=== PATIENT | male | born 1980 | race Two or more races ===

== ENCOUNTER 2018-06-21 09:30 | Emergency (ER) | payer SELFPAY ==
[2018-06-21 09:37] VITALS: BMI 27.4
[2018-06-21 10:05] VITALS: RESP 18; TEMP 99.5
--- NOTE | 2018-06-21 10:09 | ED PDOC ---
Arrival/HPI - General Chief Complaint: ENT Problem Historian: Patient - History of Present Illness Narrative History of Present Illness (Text): 06/21/18 9:45 38 year old male who presents to the emergency department complaining bilateral ear pain and headache which started last night. Patient is primarily Citizen [place] speaking and reports that yesterday he had 3 beers and some Bacardi. He reports that at some point last night he started experiencing bilateral ear pain and a headache. He admits to a subjective fever stating that he feels "his skin burnin g". Patient denies any mechanical fall, and hasn't taken any medication for his headache. He also notes experiencing abdominal pain that started at approximately midnight today, has had an episode of vomiting, and episodes of diarrhea that produced black stool. Of note patient smokes cigarettes, but denies any drug use. He admits to dizziness, and notes feeling like he is about to lose consciousness. Patient denies chills, cough, shortness of breath, chest pain, dyspnea on exertion, nausea, back pain, neck pain, or any other complaint. Time/Duration: Other (last night) Symptom Onset: Sudden Symptom Course: Unchanged Context: Home Past Medical History - Provider Review Nursing Documentation Reviewed: Yes - Infectious Disease Hx of Infectious Diseases: None - Cardiac Hx Cardiac Disorders: No - Pulmonary Hx Respiratory Disorders: No - Neurological Hx Neurological Disorder: No - HEENT Hx HEENT Disorder: No - Renal Hx Renal Disorder: No - Hematological/Oncological Hx Blood Disorders: No - Integumentary Hx Dermatological Disorder: No - Musculoskeletal/Rheumatological Hx Musculoskeletal Disorders: No - Gastrointestinal Hx Gastrointestinal Disorders: No - Genitourinary/Gynecological Hx Genitourinary Disorders: No - Psychiatric Hx Psychophysiologic Disorder: No Hx Substance Use: No - Anesthesia Hx Anesthesia: No Hx Anesthesia Reactions: No Hx Malignant Hyperthermia: No Family/Social History - Physician Review Nursing Documentation Reviewed: Yes Family/Social History: Unknown Family HX Smoking Status: Current Some Days Smoker Hx Alcohol Use: Yes Frequency of alcohol use: Few days per week Hx Substance Use: No Allergies/Home Meds Allergies/Adverse Reactions: Allergies No Known Allergies Allergy (Verified 02/09/17 13:01) Review of Systems - Physician Review All systems were reviewed & negative as marked: Yes - Review of Systems Constitutional: Fevers. absent: Other (chills) ENT: Other (ear pain) Respiratory: absent: SOB, Cough Cardiovascular: absent: Chest Pain, GRANDE Gastrointestinal: Abdominal Pain, Diarrhea (black stool) Musculoskeletal: absent: Back Pain, Neck Pain Neurological: Headache, Dizziness Physical Exam Vital Signs Reviewed: Yes Vital Signs Temp Pulse Resp BP Pulse Ox 06/21/18 09:31 99.5 F 97 H 18 185/101 H 97 Temperature: Afebrile Blood Pressure: Hypertensive Pulse: Regular Respiratory Rate: Normal Appearance: Positive for: Uncomfortable Mental Status: Positive for: Alert and Oriented X 3 - Systems Exam Head: Present: Atraumatic, Normocephalic Pupils: Present: PERRL Extroacular Muscles: Present: EOMI Conjunctiva: Present: Normal Ears: Present: Erythema (Right external ear canal and pain with insertion of otoscope), TM Bulging (right TM), Other (Left TM opaque and intact.) Mouth: Present: Moist Mucous Membranes Neck: Present: Normal Range of Motion Respiratory/Chest: Present: Clear to Auscultation, Good Air Exchange. No: Respiratory Distress, Accessory Muscle Use Cardiovascular: Present: Regular Rate and Rhythm, Normal S1, S2. No: Murmurs Abdomen: Present: Tenderness (LUQ and epigastric tenderness). No: Distention, Peritoneal Signs Back: Present: Normal Inspection Upper Extremity: Present: Normal Inspection. No: Cyanosis, Edema Lower Extremity: Present: Normal Inspection. No: Edema Neurological: Present: GCS=15, CN II-XII Intact, Speech Normal Skin: Present: Warm, Dry, Normal Color. No: Rashes Psychiatric: Present: Alert, Oriented x 3, Normal Insight, Normal Concentration Medical Decision Making ED Course and Treatment: 06/21/18 11:18 Impression: 38 year old male who is complaining of bilateral ear pain and headache which started last night, and abdominal pain that started midnight today. Plan: -- Labs -- Blood work -- Abdomen and Pelvis CT with contrast -- Head CT without contrast -- EKG -- Drug screen -- Chest X-ray -- Ativan -- Reglan -- IV fluids -- Reassess and disposition Progress Notes: 06/21/18 13:04 Labs reviewed with no leukocytosis. Hypokalemia noted and repleted with IV potassium. CTH negative for intracranial bleeding and CT a/p negative for intraabdominal pathology. VSS with patient able to ambulate without assistance. Scripts provided. He is stable for discharge. - Lab Interpretations Lab Results: 06/21/18 10:33 06/21/18 10:33 Lab Results 06/21/18 12:02: Blood Type Confirm O POSITIVE 06/21/18 10:33: Alcohol, Quantitative < 10 06/21/18 10:33: Blood Type O POSITIVE, Antibody Screen Negative, BBK History Sabina cked No verified bt 06/21/18 10:33: Sodium 135, Chloride 93 L, Potassium 3.2 L, Carbon Dioxide 27, Anion Gap 18, BUN 7, Creatinine 0.5 L, Est GFR ( Amer) > 60, Est GFR (Non-Af Amer) > 60, Random Glucose 116 H, Calcium 9.3, Phosphorus 3.1, Magnesium 1.6 L, Total Bilirubin 2.7 H, AST 68 H, ALT 39, Alkaline Phosphatase 82, Total Protein 9.1 H, Albumin 5.0 H, Globulin 4.1, Albumin/Globulin Ratio 1.2, Lipase 95 06/21/18 10:33: PT 12.9 H, INR 1.14, APTT 34.9 06/21/18 10:33: WBC 10.7, RBC 4.82, Hgb 14.9, Hct 42.4, MCV 88.0, MCH 30.9, MCHC 35.1, RDW 13.0, Plt Count 157, MPV 11.8 H, Neut % (Auto) 86.8 H, Lymph % (Auto) 6.2 L, [place] % (Auto) 6.7 H, Eos % (Auto) 0.1 L, Baso % (Auto) 0.2, Lymph # (Auto) 0.7 L, [place] # (Auto) 0.7 H, Eos # (Auto) 0.0, Baso # (Auto) 0.02, Absolute Neuts (auto) 9.27 H 06/21/18 10:31: pO2 129 H, VBG pH 7.49 H, VBG pCO2 36.0 L, VBG HCO3 27.4, VBG Total CO2 28.5 H, VBG O2 Sat (Calc) 100.1 H, VBG Base Excess 4.1 H, VBG Potassium 3.2 L, Sodium 134.0, Chloride 96.0 L, Glucose 110, Lactate 1.0, FiO2 21.0, Venous Blood Potassium 3.2 L I have reviewed the lab results: Yes - EKG Interpretation EKG Interpretation (Text): 06/21/18 10:09 EKG shows NSR at [address] abnormalities. Prolonged QT intervals and LVH. interpreted by me. Interpreted by ED Physician: Yes Type: 12 lead EKG - Scribe Statement The provider has reviewed the documentation as recorded by the Scribe Alex Saab Provider Scribe Attestation: All medical record entries made by the Scribe were at my direction and personally dictated by me. I have reviewed the chart and agree that the record accurately reflects my personal performance of the history, physical exam, medical decision making, and the department course for this patient. I have also personally directed, reviewed, and agree with the discharge instructions and dis position. Disposition/Present on Arrival - Present on Arrival Any Indicators Present on Arrival: No History of DVT/PE: No History of Uncontrolled Diabetes: No Urinary Catheter: No History of Decub. Ulcer: No History Surgical Site Infection Following: None - Disposition Have Diagnosis and Disposition been Completed?: Yes Diagnosis: Alcohol abuse, Headache Disposition: HOME/ ROUTINE Disposition Time: 13:10 Patient Plan: Discharge Condition: IMPROVED Discharge Instructions (ExitCare): Tension Headache (DC), Alcohol Abuse and Alcoholism (DC) Print Language: [place] Additional Instructions: All medical record entries made by the Scribe were at my direction and personally dictated by me. I have reviewed the chart and agree that the record accurately reflects my personal performance of the history, physical exam, medical decision making, and the department course for this patient. I have also personally directed, reviewed, and agree with the discharge instructions and disposition. Please follow up with your PCP Try to cut down on ingestion of alcohol Prescriptions: chlordiazePOXIDE [Chlordiazepoxide HCl] 25 mg PO Q4H #6 cap Referrals: Karine White MD [Medical Doctor] - Follow up with primary [facility] [place], [place] [Outside] - Follow up with primary Forms: [employer] (Citizen [place])
[2018-06-21] MEDS ORDERED: Sodium Chloride 0.9% 1,000 ML IV STA (10:15)
[2018-06-21 10:46] LABS: VENOUS BLOOD GAS BASE EXCESS 4.1 mmol/L (0.0-2.0); VENOUS BLOOD GAS PO2 129 mm/Hg (30-55); VENOUS BLOOD PH 7.49 (7.32-7.43)
[2018-06-21 10:51] LABS: BASO # 0.02 K/mm3 (0.0-2.0); BASO % 0.2 % (0.0-3.0); EOS % 0.1 % (1.5-5.0); HEMOGLOBIN 14.9 g/dL (14.0-18.0); LYMPH # 0.7 (1.2-3.4); LYMPH % 6.2 % (22.0-35.0); MEAN CORPUSCULAR HEMOGLOBIN 30.9 pg (25.0-35.0); MEAN CORPUSCULAR HGB CONC 35.1 g/dl (31.0-37.0); MEAN PLATELET VOLUME 11.8 fl (7.0-11.0); MONO # 0.7 (0.1-0.6); MONO % 6.7 % (1.0-6.0); RBC 4.82 10^6/uL (3.5-6.1); WHITE BLOOD COUNT 10.7 10^3/uL (4.5-11.0)
[2018-06-21 10:58] LABS: ALB/GLOB RATIO 1.2 (1.1-1.8); ALT/SGPT 39 U/L (7-56); AST/SGOT 68 U/L (17-59); BLOOD UREA NITROGEN 7 mg/dL (7-21); CALCIUM 9.3 mg/dL (8.4-10.5); GFR NON-AFRICAN AMERICAN > 60; LIPASE 95 U/L (23-300)
[2018-06-21] MEDS ORDERED: Iohexol 350 MG/100 ML VIAL ONE (10:59)
[2018-06-21 11:02] LABS: INR 1.14; PARTIAL THROMBOPLASTIN TIME 34.9 Seconds (26.9-38.3); PROTHROMBIN TIME 12.9 SECONDS (9.4-12.5)
[2018-06-21] MEDS ORDERED: Potassium Chloride 40 mEq/30 ml LIQ UD PO STA (11:53)
--- NOTE | 2018-06-21 12:02 | CT ---
Date of service: 06/21/2018 PROCEDURE: CT HEAD WITHOUT CONTRAST. HISTORY: headache COMPARISON: None available. TECHNIQUE: Axial computed tomography images were obtained through the head/brain without intravenous contrast. Radiation dose: Total exam DLP = 978.32 mGy-cm. This CT exam was performed using one or more of the following dose reduction techniques: Automated exposure control, adjustment of the mA and/or kV according to patient size, and/or use of iterative reconstruction technique. FINDINGS: HEMORRHAGE: No intracranial hemorrhage. BRAIN: No mass effect or edema. No atrophy or chronic microvascular ischemic changes. VENTRICLES: Unremarkable. No hydrocephalus. CALVARIUM: Unremarkable. PARANASAL SINUSES: Unremarkable as visualized. No significant inflammatory changes. MASTOID AIR CELLS: Unremarkable as visualized. No inflammatory changes. OTHER FINDINGS: None IMPRESSION: No acute intracranial finding
--- NOTE | 2018-06-21 12:05 | RAD ---
Date of service: 06/21/2018 HISTORY: sob COMPARISON: No prior. TECHNIQUE: 1 view obtained. FINDINGS: LUNGS: No active pulmonary disease. PLEURA: No significant pleural effusion identified, no pneumothorax apparent. CARDIOVASCULAR: No aortic atherosclerotic calcification present. Normal cardiac size. No pulmonary vascular congestion. OSSEOUS STRUCTURES: No significant abnormalities. VISUALIZED UPPER ABDOMEN: Normal. OTHER FINDINGS: None. IMPRESSION: No active disease.
[2018-06-21 12:11] VITALS: PULSE 98
--- NOTE | 2018-06-21 12:35 | CT ---
Date of service: 06/21/2018 PROCEDURE: CT Abdomen and Pelvis with contrast HISTORY: epigastric pain w/ emesis COMPARISON: None. TECHNIQUE: Contrast dose: 100 cc of Omni 350 Radiation dose: Total exam DLP = 793.64 mGy-cm. This CT exam was performed using one or more of the following dose reduction techniques: Automated exposure control, adjustment of the mA and/or kV according to patient size, and/or use of iterative reconstruction technique. FINDINGS: LOWER THORAX: Unremarkable. LIVER: Unremarkable. No gross lesion or ductal dilatation. Severe fatty infiltration of the liver GALLBLADDER AND BILE DUCTS: Unremarkable. PANCREAS: Unremarkable. No gross lesion or ductal dilatation. SPLEEN: Unremarkable. ADRENALS: Unremarkable. No mass. KIDNEYS AND URETERS: Unremarkable. No hydronephrosis. No solid mass. VASCULATURE: Unremarkable. No aortic aneurysm. No aortic atherosclerotic calcification or mural plaque present. BOWEL: Unremarkable. No obstruction. No gross mural thickening. APPENDIX: Normal appendix. PERITONEUM: Unremarkable. No free fluid. No free air. LYMPH NODES: Unremarkable. No enlarged lymph nodes. BLADDER: Unremarkable. REPRODUCTIVE: Unremarkable. BONES: No acute fracture. OTHER FINDINGS: None. IMPRESSION: Severe fatty infiltration of the liver
[2018-06-21 13:41] VITALS: BP 146/91; O2SAT 97
--- NOTE | 2018-06-21 15:11 | CARD ---
APPROVED REPORT Date of service: 06/21/2018 EKG Measurement Heart [id number] <Conclusion> Normal sinus rhythm with sinus arrhythmia Moderate voltage criteria for LVH, may be normal variant Borderline ECG
== END 2018-06-21 13:10 | disposition home or self-care (01) ==
LOC: ED 09:30
DX: F10.10 Alcohol abuse, uncomplicated (principal); R51 Headache
CPT/HCPCS: 70450; 71045; 74177; 80053; 82803; 83690; 83735; 84100; 85025; 85610; 85730; 86850; 86900; 93005; 96374; 96375; 99284; G0480; J1885; J2060; J2765; J3480; J7030; Q9967